=== PATIENT | female | born 1955 | race Caucasian/White ===

== ENCOUNTER → 2018-08-02 | Outpatient (CLI) | payer SELFPAY ==
[~2018-08-02] MED LIST: ATOR20TA22 PO; ATOR20TA65 PO; CLI150 PO; ESTR1 PV; FOSI10TA46 PO; HORMONE COMPOUND PO; KET10 PO; LEVO25TA56 PO; LISI20TA29 PO; LISI30TA49 PO; MULT1CAP41 PO; OMEP-218 PO; PER PO; PRAS25CA7 PO; PREG25PO9 MC
--- NOTE | 2018-08-02 09:57 | RADIOLOGY IMAGING REPORT ---
FACILITY: [facility] [place] PATIENT NAME: LUCAS ENNIS : [id number] MR: [id number] V: [id number] EXAM DATE: [id number] ORDERING PHYSICIAN: JEFF CARUSO TECHNOLOGIST: Roxanne Rodriguez PROCEDURE:BILATERAL DIGITAL SCREENING MAMMOGRAM WITH CAD ASSISTED INTERPRETATION & 3D TOMOSYNTHESIS COMPARISON:Prior mammograms 12/31/14, 11/27/13, 12/27/11. INDICATIONS:SCREENING FINDINGS: The breasts are heterogeneously dense which can obscure small masses. The parenchymal pattern has remained stable allowing for difference in mammographic technique & patient positioning. DIAGNOSTIC CATEGORY 1--NEGATIVE. RECOMMENDATIONS: ROUTINE MAMMOGRAM AND CLINICAL EVALUATION. IMPRESSION: BIRADS 1: Negative. No significant abnormality is seen. Dictated by: Beckie Delgado M.D. on 08/02/2018 at 9:11 Transcribed by: SHALONDA on 08/02/2018 at 9:31 Approved by: Beckie Delgado M.D. on 08/02/2018 at 9:56 [facility]
== END ==
LOC: MAMO 01:49
PROVIDERS: ATTEND Nurse Practitioner Family
DX: Z12.31 Encounter for screening mammogram for malignant neoplasm of breast (principal)
CPT/HCPCS: 77063; 77067